=== PATIENT | female | born 1940 | race African-American/Black ===

== ENCOUNTER 2017-02-24 15:17 | Emergency (ER) | payer OTHER, MEDICARE ==
[2017-02-24] MEDS ORDERED: IBUPROFEN 800 MG TABLET PO ONE (16:34)
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
[2017-02-24 16:36] VITALS: BP 147/82
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
== END 2017-02-24 19:19 | disposition home or self-care (01) ==
LOC: ER 15:17
DX: M54.89 Other dorsalgia (principal); R07.81 Pleurodynia; V49.9XXA Car occupant (driver) (passenger) injured in unspecified traffic accident, initial encounter; I10 Essential (primary) hypertension; Z88.8 Allergy status to other drugs, medicaments and biological substances
CPT/HCPCS: 71111; 99283